=== PATIENT | male | born 1940 | race Caucasian/White ===

== ENCOUNTER 2018-05-06 14:20 | Inpatient (IN) | payer MEDICARE ==
[~2018-05-06] VITALS: Ht 175.3 cm; Wt 93.0 kg
[2018-05-06 14:49] VITALS: BP 140/77
[2018-05-06] MEDS ORDERED: METF-815 PO (15:13)
[2018-05-06] MEDS ORDERED: GABA-529 PO (15:13)
[2018-05-06] MEDS ORDERED: METO-539 PO (15:13)
[2018-05-06] MEDS ORDERED: LOSA1TAB37 PO (15:13)
[2018-05-06] MEDS ORDERED: ASPI-1158 PO (15:13)
[2018-05-06] MEDS ORDERED: ONDANSETRON HCL 4MG/2ML INJ IV PRN (15:30)
[2018-05-06] MEDS ORDERED: CLONIDINE 0.1MG TABLET PO PRN (15:30)
[2018-05-06] MEDS ORDERED: DEXTROSE 50% WATER 50ML SYRINGE IV PRN (15:30)
[2018-05-06] MEDS ORDERED: DOCUSATE SODIUM 100MG CAPSULE PO PRN (15:30)
[2018-05-06] MEDS ORDERED: ACETAMINOPHEN 325MG TABLET PO PRN (15:30)
[2018-05-06 16:00] VITALS: BP 139/77
[2018-05-06] MEDS: GABAPENTIN 100MG CAPSULE PO SCH ×2 (16:10→21:40)
[2018-05-06] MEDS ORDERED: INFLUENZA VIRUS VACCINE(AFLURIA) 0.5ML SYR IM ONE (16:30)
[2018-05-06] MEDS: BLOOD SUGAR DIAGNOSTIC STRIP TEST SCH ×2 (17:04→21:00)
[2018-05-06] MEDS: INSULIN LISPRO 100 UNITS/ML SUBCUT SCH ×2 (17:04→21:00)
[2018-05-06 18:00] VITALS: BP 137/77
[2018-05-06 18:15] LABS: CHLORIDE 99 mEq/L (98-107)
[2018-05-06 18:18] LABS: BASOPHILS % 0.7 % (0.0-2.0); EOSINOPHILS % 1.6 % (0.0-5.0); HEMATOCRIT. 37.3 % (42.0-52.0); HEMOGLOBIN. 12.8 g/dL (14.0-18.0); LYMPHOCYTES % 23.3 % (20.0-50.0); MEAN CORPUSCULAR HEMOGLOBIN 29.9 pg (28.0-32.0); MEAN CORPUSCULAR VOLUME 87.5 fL (80.0-94.0); MEAN PLATELET VOLUME 6.9 fl (7.4-10.4); MONOCYTES % 10.3 % (2.0-8.0); NEUTROPHILS % 64.1 % (40.0-76.0); PARTIAL THROMBOPLASTIN TIME 29.6 sec (23.4-31.0); PLATELET 307 x1000/uL (130-400); RED BLOOD CELL COUNT 4.27 mill/uL (4.7-6.1); RED CELL DISTRIBUTION WIDTH 13.2 % (11.6-14.6)
[2018-05-06 20:00] VITALS: BP 126/76
[2018-05-06] MEDS: METOPROLOL TARTRATE 25MG TABLET PO SCH (21:42)
[2018-05-06] MEDS: DEXT 5%/0.9% NACL 1,000 ML IV SCH (21:45)
[2018-05-06 22:00] VITALS: BP 114/71
[2018-05-07] VITALS (11 sets, daily range): BP systolic 98–130; BP diastolic 56–80
[2018-05-07] MEDS: GABAPENTIN 100MG CAPSULE PO SCH ×2 (06:06→14:51)
[2018-05-07] MEDS: BLOOD SUGAR DIAGNOSTIC STRIP TEST SCH ×2 (06:33→11:50)
[2018-05-07] MEDS: INSULIN LISPRO 100 UNITS/ML SUBCUT SCH ×2 (07:20→12:20)
[2018-05-07] MEDS: DEXT 5%/0.9% NACL 1,000 ML IV SCH (07:58)
[2018-05-07] MEDS: METOPROLOL TARTRATE 25MG TABLET PO SCH (08:01)
[2018-05-07] MEDS ORDERED: HYDROMORPHONE HCL/PF 2MG/ML (OR) ONE (10:34)
[2018-05-07] MEDS ORDERED: PROPOFOL 200MG/20ML VIAL IV ONE (10:50)
[2018-05-07] MEDS ORDERED: LIDOCAINE HCL/EPINEPHRINE 1%-EPI 1:100,000 20 ML VIAL ONE (10:57)
[2018-05-07] MEDS ORDERED: SUCCINYLCHOLINE CHLORIDE 200MG/10ML IV ONE (11:33)
[2018-05-07] MEDS ORDERED: SKIN ADHESIVE 0.7 GM EA TOP ONE (11:46)
[2018-05-20] MEDS ORDERED: MED4 PO (08:45)
[2018-05-20] MEDS ORDERED: TOPXL5 PO (08:45)
[2018-05-20] MEDS ORDERED: METF-815 PO (08:45)
== END 2018-05-07 17:20 | disposition home or self-care (01) | DRG 167 ==
LOC: 3WST 14:20
PROVIDERS: ADMIT Internal Medicine Critical Care Medicine; ATTEND Internal Medicine Critical Care Medicine
PROC: 0BJ08ZZ Inspection of Tracheobronchial Tree, Via Natural or Artificial Opening Endoscopic (ICD-10-PCS; 2018-05-07)
PROC: 07B74ZX Excision of Thorax Lymphatic, Percutaneous Endoscopic Approach, Diagnostic (ICD-10-PCS; principal; 2018-05-07 13:30)
DX: R91.8 Other nonspecific abnormal finding of lung field (principal); R04.2 Hemoptysis; E04.2 Nontoxic multinodular goiter; E11.22 Type 2 diabetes mellitus with diabetic chronic kidney disease; E11.42 Type 2 diabetes mellitus with diabetic polyneuropathy; R59.0 Localized enlarged lymph nodes; I12.9 Hypertensive chronic kidney disease with stage 1 through stage 4 chronic kidney disease, or unspecified chronic kidney disease; I35.0 Nonrheumatic aortic (valve) stenosis; R00.1 Bradycardia, unspecified; E27.8 Other specified disorders of adrenal gland; J38.01 Paralysis of vocal cords and larynx, unilateral; N18.9 Chronic kidney disease, unspecified; Z87.891 Personal history of nicotine dependence; Z98.1 Arthrodesis status; Z90.49 Acquired absence of other specified parts of digestive tract
CPT/HCPCS: 36415; 71045; 82962; 83036; 88305; 88331; 90686; 93005; 93306; 93970; J0330; J1170; J2704; J3490; J7042

== ENCOUNTER 2018-05-20 09:08 | Inpatient (IN) | payer MEDICARE ==
[2018-05-20] VITALS (20 sets, daily range): BP systolic 80–150; BP diastolic 27–126
[~2018-05-20] VITALS: Ht 152.4 cm; Wt 94.0 kg
[~2018-05-20 09:08] MED LIST: ASPI-1158 PO; GABA-529 PO; LOSA1TAB37 PO; MED4 PO; METF-815 PO; METO-539 PO; TOPXL5 PO
[2018-05-20] MEDS ORDERED: BUDE0.252 NEB (09:15)
[2018-05-20] MEDS ORDERED: LACTATED RINGERS 1,000 ML IV SCH (10:40)
[2018-05-20] MEDS ORDERED: DOXYCYCLINE HYCLATE 100 MG/VIAL IV ONE (11:00)
[2018-05-20 11:10] LABS: HEMATOCRIT. 43.4 % (42.0-52.0); HEMOGLOBIN. 14.7 g/dL (14.0-18.0); MEAN CORPUSCULAR HEMOGLOBIN 29.9 pg (28.0-32.0); MEAN CORPUSCULAR VOLUME 88.6 fL (80.0-94.0); MEAN PLATELET VOLUME 6.8 fl (7.4-10.4); PLATELET 320 x1000/uL (130-400); RED CELL DISTRIBUTION WIDTH 14.1 % (11.6-14.6)
[2018-05-20 11:19] LABS: PARTIAL THROMBOPLASTIN TIME 28.6 sec (23.4-31.0); PROTHROMBIN TIME 10.1 sec (9.1-11.1)
[2018-05-20 11:21] LABS: CHLORIDE 101 mEq/L (98-107)
[2018-05-20 11:55] LABS: PLATELET ESTIMATE NORMAL
[2018-05-20] MEDS ORDERED: PROPOFOL 200MG/20ML VIAL IV ONE (13:23)
[2018-05-20] MEDS ORDERED: FENTANYL CITRATE/PF 50MCG/ML 5ML VIAL ONE (13:51)
[2018-05-20] MEDS ORDERED: TETRACAINE/BENZOCAINE/BUTAMBEN 20 GM SPRAY MM ONE (13:59)
[2018-05-20] MEDS ORDERED: SKIN ADHESIVE 0.7 GM EA TOP ONE (15:24)
[2018-05-20] MEDS ORDERED: ONDANSETRON HCL 4MG/2ML INJ IV PRN (16:00)
[2018-05-20] MEDS ORDERED: CLONIDINE 0.1MG TABLET PO PRN (16:00)
[2018-05-20] MEDS ORDERED: DEXTROSE 50% WATER 50ML SYRINGE IV PRN (16:00)
[2018-05-20] MEDS: MORPHINE SULFATE 4 MG/ML CPJ (NOT FOR IM USE) IV PRN ×4 (16:21→21:49)
[2018-05-20 16:24] LABS: HEMATOCRIT. 37.7 % (42.0-52.0); HEMOGLOBIN. 12.6 g/dL (14.0-18.0); MEAN CORPUSCULAR HEMOGLOBIN 29.2 pg (28.0-32.0); MEAN CORPUSCULAR VOLUME 87.5 fL (80.0-94.0); MEAN PLATELET VOLUME 6.6 fl (7.4-10.4); PLATELET 306 x1000/uL (130-400); RED BLOOD CELL COUNT 4.31 mill/uL (4.7-6.1); RED CELL DISTRIBUTION WIDTH 13.9 % (11.6-14.6)
[2018-05-20] MEDS ORDERED: SODIUM CHLORIDE 0.9% 500 ML IV NR (16:30)
[2018-05-20] MEDS: IPRATROPIUM/ALBUTEROL 0.5-3(2.5)MG/3ML NEB INH PRN (16:42)
[2018-05-20 16:46] LABS: BG BASE EXCESS -2.7 mmol/L (-2.0-2.0); BG CARBOXYHEMOGLOBIN 0.5 % (0.5-1.5); BG DEOXYHEMOGLOBIN 4.7 % (0.0-5.0); BG FRACTION INSPIRED OXYGEN 70; BG HCO3 ACT 21.6 mmol/L (22.0-26.0); BG METHEMOGLOBIN 0.5 % (0.0-1.5); BG OXYGEN SATURATION 95.3 % (92.0-98.5); BG OXYHEMOGLOBIN 94.3 % (94.0-97.0); BG PCO2 36.3 mmHg (35.0-45.0); BG PH 7.393 (7.350-7.450); BG PO2 80.7 mmHg (75.0-100.0); BG SAMPLE SITE RIGHT BRACHIAL; BG TOTAL HEMOGLOBIN 13.4 g/dL (12.0-18.0); BG VENT MODE MASK - SIMPLE
[2018-05-20 16:47] LABS: PLATELET ESTIMATE NORMAL
[2018-05-20] MEDS: BLOOD SUGAR DIAGNOSTIC STRIP TEST SCH ×2 (17:24→20:32)
[2018-05-20] MEDS ORDERED: SODIUM CHLORIDE 0.9% 500 ML IV SCH (17:30)
[2018-05-20] MEDS: INSULIN LISPRO 100 UNITS/ML SUBCUT SCH ×2 (17:45→21:27)
[2018-05-20] MEDS: HYDROCODONE/ACETAMINOPHEN 5/325MG TABLET PO PRN (20:16)
[2018-05-20 20:38] LABS: HEMATOCRIT 42.8 % (42.0-52.0); HEMOGLOBIN 14.2 g/dL (14.0-18.0); MEAN CORPUSCULAR HEMOGLOBIN 29.6 pg (28.0-32.0); MEAN CORPUSCULAR VOLUME 89.7 fL (80.0-94.0); PLATELET 287 x1000/uL (130-400); RED BLOOD CELL COUNT 4.78 mill/uL (4.7-6.1); RED CELL DISTRIBUTION WIDTH 13.8 % (11.6-14.6)
[2018-05-20] MEDS: GABAPENTIN 300MG CAPSULE PO SCH (21:26)
[2018-05-21] VITALS (39 sets, daily range): BP systolic 98–166; BP diastolic 60–88
[2018-05-21] MEDS: HYDROCODONE/ACETAMINOPHEN 5/325MG TABLET PO PRN (05:28)
[2018-05-21 06:19] LABS: HEMATOCRIT. 38.3 % (42.0-52.0); HEMOGLOBIN. 12.9 g/dL (14.0-18.0); MEAN CORPUSCULAR HEMOGLOBIN 29.6 pg (28.0-32.0); MEAN CORPUSCULAR VOLUME 87.9 fL (80.0-94.0); MEAN PLATELET VOLUME 7.1 fl (7.4-10.4); PLATELET 325 x1000/uL (130-400); RED BLOOD CELL COUNT 4.35 mill/uL (4.7-6.1); RED CELL DISTRIBUTION WIDTH 13.8 % (11.6-14.6)
[2018-05-21 06:34] LABS: CHLORIDE 103 mEq/L (98-107)
[2018-05-21] MEDS: GABAPENTIN 300MG CAPSULE PO SCH ×3 (06:55→21:23)
[2018-05-21] MEDS: MORPHINE SULFATE 4 MG/ML CPJ (NOT FOR IM USE) IV PRN ×2 (07:50→18:44)
[2018-05-21 07:55] LABS: PLATELET ESTIMATE NORMAL
[2018-05-21] MEDS: BLOOD SUGAR DIAGNOSTIC STRIP TEST SCH ×4 (08:07→21:24)
[2018-05-21] MEDS: INSULIN LISPRO 100 UNITS/ML SUBCUT SCH ×4 (08:14→21:00)
[2018-05-21] MEDS: SODIUM CHLORIDE 0.9% 1,000 ML IV SCH ×2 (09:35→21:24)
[2018-05-21] MEDS: HYDROCODONE/ACETAMINOPHEN 10/325MG TABLET PO PRN ×3 (09:36→23:00)
[2018-05-21] MEDS: IPRATROPIUM/ALBUTEROL 0.5-3(2.5)MG/3ML NEB INH PRN (22:37)
[2018-05-21] MEDS: GUAIFENESIN 600MG ER TABLET PO SCH (22:49)
[2018-05-22] VITALS (47 sets, daily range): BP systolic 97–147; BP diastolic 55–105
[2018-05-22] MEDS: MORPHINE SULFATE 4 MG/ML CPJ (NOT FOR IM USE) IV PRN ×2 (02:03→06:33)
[2018-05-22] MEDS: ACETAMINOPHEN 325MG TABLET PO PRN (03:48)
[2018-05-22] MEDS: SODIUM CHLORIDE 0.9% 1,000 ML IV SCH ×2 (04:25→16:59)
[2018-05-22] MEDS: HYDROCODONE/ACETAMINOPHEN 5/325MG TABLET PO PRN (04:59)
[2018-05-22 05:47] LABS: HEMATOCRIT. 34.4 % (42.0-52.0); HEMOGLOBIN. 11.5 g/dL (14.0-18.0); MEAN CORPUSCULAR HEMOGLOBIN 29.5 pg (28.0-32.0); MEAN CORPUSCULAR VOLUME 88.1 fL (80.0-94.0); MEAN PLATELET VOLUME 7.1 fl (7.4-10.4); PLATELET 271 x1000/uL (130-400); RED CELL DISTRIBUTION WIDTH 14.1 % (11.6-14.6)
[2018-05-22] MEDS: GABAPENTIN 300MG CAPSULE PO SCH ×3 (06:00→21:04)
[2018-05-22 06:40] LABS: INR 1.1; PARTIAL THROMBOPLASTIN TIME 30.9 sec (23.4-31.0)
[2018-05-22 07:15] LABS: CHLORIDE 104 mEq/L (98-107)
[2018-05-22 07:59] LABS: PLATELET ESTIMATE NORMAL
[2018-05-22] MEDS: BLOOD SUGAR DIAGNOSTIC STRIP TEST SCH ×4 (08:02→21:04)
[2018-05-22] MEDS: INSULIN LISPRO 100 UNITS/ML SUBCUT SCH ×4 (08:02→21:00)
[2018-05-22] MEDS: HYDROCODONE/ACETAMINOPHEN 10/325MG TABLET PO PRN ×2 (09:17→19:02)
[2018-05-22] MEDS: GUAIFENESIN 600MG ER TABLET PO SCH ×2 (09:17→21:04)
[2018-05-22] MEDS: IPRATROPIUM/ALBUTEROL 0.5-3(2.5)MG/3ML NEB INH PRN ×2 (09:31→14:41)
[2018-05-22 10:02] LABS: BG BASE EXCESS -1.5 mmol/L (-2.0-2.0); BG CARBOXYHEMOGLOBIN 0.6 % (0.5-1.5); BG DEOXYHEMOGLOBIN 7.4 % (0.0-5.0); BG FRACTION INSPIRED OXYGEN 50; BG HCO3 ACT 22.3 mmol/L (22.0-26.0); BG METHEMOGLOBIN 0.5 % (0.0-1.5); BG OXYGEN SATURATION 92.5 % (92.0-98.5); BG OXYHEMOGLOBIN 91.5 % (94.0-97.0); BG PCO2 34.3 mmHg (35.0-45.0); BG PO2 62.7 mmHg (75.0-100.0); BG SAMPLE SITE RIGHT RADIAL; BG VENT MODE MASK - SIMPLE
[2018-05-23] VITALS (35 sets, daily range): BP systolic 96–138; BP diastolic 42–98
[2018-05-23] MEDS: SODIUM CHLORIDE 0.9% 1,000 ML IV SCH ×3 (01:39→17:55)
[2018-05-23] MEDS: GABAPENTIN 300MG CAPSULE PO SCH ×3 (04:33→22:12)
[2018-05-23] MEDS: HYDROCODONE/ACETAMINOPHEN 10/325MG TABLET PO PRN (04:34)
[2018-05-23 06:14] LABS: HEMATOCRIT. 32.1 % (42.0-52.0); HEMOGLOBIN. 10.7 g/dL (14.0-18.0); MEAN CORPUSCULAR HEMOGLOBIN 29.5 pg (28.0-32.0); MEAN CORPUSCULAR VOLUME 88.4 fL (80.0-94.0); MEAN PLATELET VOLUME 7.2 fl (7.4-10.4); PLATELET 249 x1000/uL (130-400); RED BLOOD CELL COUNT 3.63 mill/uL (4.7-6.1)
[2018-05-23 06:25] LABS: CHLORIDE 105 mEq/L (98-107)
[2018-05-23 07:47] LABS: PLATELET ESTIMATE NORMAL
[2018-05-23 07:48] LABS: BG BASE EXCESS -2.4 mmol/L (-2.0-2.0); BG CARBOXYHEMOGLOBIN 0.1 % (0.5-1.5); BG DEOXYHEMOGLOBIN 2.7 % (0.0-5.0); BG HCO3 ACT 21.5 mmol/L (22.0-26.0); BG METHEMOGLOBIN 0.3 % (0.0-1.5); BG OXYGEN SATURATION 97.3 % (92.0-98.5); BG OXYHEMOGLOBIN 96.9 % (94.0-97.0); BG PCO2 34.1 mmHg (35.0-45.0); BG PH 7.418 (7.350-7.450); BG PO2 92.9 mmHg (75.0-100.0); BG SAMPLE SITE RIGHT BRACHIAL; BG TOTAL HEMOGLOBIN 10.7 g/dL (12.0-18.0); BG VENT MODE VAPOTHERM
[2018-05-23] MEDS: BLOOD SUGAR DIAGNOSTIC STRIP TEST SCH ×4 (07:50→21:00)
[2018-05-23] MEDS: INSULIN LISPRO 100 UNITS/ML SUBCUT SCH ×4 (08:20→21:00)
[2018-05-23] MEDS: IPRATROPIUM/ALBUTEROL 0.5-3(2.5)MG/3ML NEB INH PRN ×2 (08:33→11:45)
[2018-05-23] MEDS: GUAIFENESIN 600MG ER TABLET PO SCH (08:49)
[2018-05-23] MEDS: MORPHINE SULFATE 4 MG/ML CPJ (NOT FOR IM USE) IV PRN (08:51)
[2018-05-23] MEDS: ACETYLCYSTEINE 100MG/ML 10% VIAL 4ML INH SCH (11:45)
[2018-05-23] MEDS ORDERED: BISACODYL 5MG TABLET PO PRN (15:00)
[2018-05-23] MEDS: DOCUSATE SODIUM 250MG CAPSULE PO SCH (15:00)
[2018-05-23] MEDS: TRAMADOL 50MG TABLET PO PRN (18:15)
[2018-05-23] MEDS: HYDROCODONE/ACETAMINOPHEN 5/325MG TABLET PO PRN (22:12)
[2018-05-24] VITALS (16 sets, daily range): BP systolic 98–137; BP diastolic 62–91
[2018-05-24] MEDS: ACETYLCYSTEINE 100MG/ML 10% VIAL 4ML INH SCH ×3 (00:28→16:30)
[2018-05-24] MEDS: IPRATROPIUM/ALBUTEROL 0.5-3(2.5)MG/3ML NEB INH PRN ×6 (00:28→21:30)
[2018-05-24] MEDS: SODIUM CHLORIDE 0.9% 1,000 ML IV SCH ×3 (04:24→22:39)
[2018-05-24] MEDS: INSULIN LISPRO 100 UNITS/ML SUBCUT SCH ×4 (07:20→21:00)
[2018-05-24] MEDS: BLOOD SUGAR DIAGNOSTIC STRIP TEST SCH ×4 (07:21→21:00)
[2018-05-24] MEDS: GABAPENTIN 300MG CAPSULE PO SCH ×3 (07:21→22:49)
[2018-05-24] MEDS: DOCUSATE SODIUM 250MG CAPSULE PO SCH (09:00)
[2018-05-24 10:40] LABS: BG BASE EXCESS -4.4 mmol/L (-2.0-2.0); BG CARBOXYHEMOGLOBIN 0.3 % (0.5-1.5); BG DEOXYHEMOGLOBIN 2.8 % (0.0-5.0); BG FRACTION INSPIRED OXYGEN 60; BG HCO3 ACT 18.9 mmol/L (22.0-26.0); BG METHEMOGLOBIN 0.7 % (0.0-1.5); BG OXYGEN SATURATION 97.2 % (92.0-98.5); BG OXYHEMOGLOBIN 96.2 % (94.0-97.0); BG PCO2 28.6 mmHg (35.0-45.0); BG PH 7.437 (7.350-7.450); BG PO2 96.9 mmHg (75.0-100.0); BG SAMPLE SITE RIGHT FEMORAL; BG TOTAL HEMOGLOBIN 10.3 g/dL (12.0-18.0); BG VENT MODE VAPOTHERM
[2018-05-25] VITALS (12 sets, daily range): BP systolic 99–141; BP diastolic 54–89
[2018-05-25] MEDS: IPRATROPIUM/ALBUTEROL 0.5-3(2.5)MG/3ML NEB INH PRN ×3 (01:20→16:32)
[2018-05-25] MEDS: ACETYLCYSTEINE 100MG/ML 10% VIAL 4ML INH SCH ×3 (01:21→16:31)
[2018-05-25] MEDS: HYDROCODONE/ACETAMINOPHEN 5/325MG TABLET PO PRN (02:01)
[2018-05-25] MEDS: GABAPENTIN 300MG CAPSULE PO SCH ×3 (06:00→21:21)
[2018-05-25 06:34] LABS: BASOPHILS % 0.3 % (0.0-2.0); EOSINOPHILS % 0.6 % (0.0-5.0); HEMATOCRIT. 26.4 % (42.0-52.0); HEMOGLOBIN. 9.3 g/dL (14.0-18.0); LYMPHOCYTES % 7.2 % (20.0-50.0); MEAN CORPUSCULAR HEMOGLOBIN 30.7 pg (28.0-32.0); MEAN CORPUSCULAR VOLUME 86.9 fL (80.0-94.0); MEAN PLATELET VOLUME 6.7 fl (7.4-10.4); NEUTROPHILS % 80.9 % (40.0-76.0); PLATELET 297 x1000/uL (130-400); RED BLOOD CELL COUNT 3.03 mill/uL (4.7-6.1)
[2018-05-25 07:11] LABS: CHLORIDE 104 mEq/L (98-107)
[2018-05-25] MEDS: INSULIN LISPRO 100 UNITS/ML SUBCUT SCH ×4 (07:11→22:00)
[2018-05-25] MEDS: BLOOD SUGAR DIAGNOSTIC STRIP TEST SCH ×4 (07:11→21:12)
[2018-05-25] MEDS: TRAMADOL 50MG TABLET PO PRN ×2 (08:21→21:22)
[2018-05-25] MEDS: DOCUSATE SODIUM 250MG CAPSULE PO SCH (09:00)
[2018-05-25 09:53] LABS: BG BASE EXCESS -3.4 mmol/L (-2.0-2.0); BG CARBOXYHEMOGLOBIN 0.3 % (0.5-1.5); BG DEOXYHEMOGLOBIN 1.5 % (0.0-5.0); BG FRACTION INSPIRED OXYGEN 60; BG HCO3 ACT 19.9 mmol/L (22.0-26.0); BG METHEMOGLOBIN 0.5 % (0.0-1.5); BG OXYGEN SATURATION 98.5 % (92.0-98.5); BG OXYHEMOGLOBIN 97.7 % (94.0-97.0); BG PH 7.439 (7.350-7.450); BG PO2 121.5 mmHg (75.0-100.0); BG SAMPLE SITE RIGHT RADIAL; BG TOTAL HEMOGLOBIN 11.3 g/dL (12.0-18.0); BG VENT MODE VAPOTHERM
[2018-05-25] MEDS: SODIUM CHLORIDE 0.9% 1,000 ML IV SCH ×2 (10:20→21:23)
[2018-05-26] VITALS (12 sets, daily range): BP systolic 89–133; BP diastolic 59–79
[2018-05-26] MEDS ORDERED: KCL 10MEQ/50ML PREMIX 50 ML IV NR
[2018-05-26] MEDS: IPRATROPIUM/ALBUTEROL 0.5-3(2.5)MG/3ML NEB INH PRN ×3 (00:50→15:33)
[2018-05-26] MEDS: ACETYLCYSTEINE 100MG/ML 10% VIAL 4ML INH SCH ×3 (00:50→15:33)
[2018-05-26 06:26] LABS: HEMATOCRIT. 27.2 % (42.0-52.0); HEMOGLOBIN. 9.3 g/dL (14.0-18.0); MEAN CORPUSCULAR HEMOGLOBIN 29.6 pg (28.0-32.0); MEAN PLATELET VOLUME 6.6 fl (7.4-10.4); PLATELET 289 x1000/uL (130-400); RED BLOOD CELL COUNT 3.13 mill/uL (4.7-6.1); RED CELL DISTRIBUTION WIDTH 14.2 % (11.6-14.6)
[2018-05-26] MEDS: BLOOD SUGAR DIAGNOSTIC STRIP TEST SCH ×4 (06:33→21:00)
[2018-05-26] MEDS: INSULIN LISPRO 100 UNITS/ML SUBCUT SCH ×4 (06:33→21:00)
[2018-05-26] MEDS: GABAPENTIN 300MG CAPSULE PO SCH ×3 (06:33→22:05)
[2018-05-26 06:35] LABS: CHLORIDE 104 mEq/L (98-107)
[2018-05-26] MEDS: TRAMADOL 50MG TABLET PO PRN ×2 (08:36→17:26)
[2018-05-26] MEDS: SODIUM CHLORIDE 0.9% 1,000 ML IV SCH ×2 (08:36→19:45)
[2018-05-26] MEDS: DOCUSATE SODIUM 250MG CAPSULE PO SCH (08:36)
[2018-05-26 10:36] LABS: BG BASE EXCESS -1.5 mmol/L (-2.0-2.0); BG CARBOXYHEMOGLOBIN 0.3 % (0.5-1.5); BG DEOXYHEMOGLOBIN 2.5 % (0.0-5.0); BG FRACTION INSPIRED OXYGEN 50; BG HCO3 ACT 22.2 mmol/L (22.0-26.0); BG METHEMOGLOBIN 0.4 % (0.0-1.5); BG OXYGEN SATURATION 97.5 % (92.0-98.5); BG OXYHEMOGLOBIN 96.8 % (94.0-97.0); BG PCO2 33.3 mmHg (35.0-45.0); BG PH 7.441 (7.350-7.450); BG PO2 93.5 mmHg (75.0-100.0); BG SAMPLE SITE RIGHT RADIAL; BG TOTAL HEMOGLOBIN 10.5 g/dL (12.0-18.0); BG VENT MODE VAPOTHERM
[2018-05-26 13:32] LABS: PLATELET ESTIMATE NORMAL
[2018-05-26 19:06] LABS: CLARITY URINE CLOUDY (CLEAR); COLOR URINE DARK YELLOW (YELLOW); KETONES URINE 3+ (NEGATIVE); LEUKOCYTE ESTERASE URINE 3+ (NEGATIVE); NITRITE URINE POSITIVE (NEGATIVE); OCCULT BLOOD URINE 1+ (NEGATIVE); PH URINE 5.5 (4.5-8.0); PROTEIN URINE TRACE (NEGATIVE); SPECIFIC GRAVITY URINE 1.017 (1.005-1.030)
[2018-05-27] VITALS (12 sets, daily range): BP systolic 92–144; BP diastolic 53–94
[2018-05-27] MEDS: IPRATROPIUM/ALBUTEROL 0.5-3(2.5)MG/3ML NEB INH PRN ×4 (00:11→17:15)
[2018-05-27] MEDS: ACETYLCYSTEINE 100MG/ML 10% VIAL 4ML INH SCH ×4 (00:11→17:14)
[2018-05-27] MEDS: SODIUM CHLORIDE 0.9% 1,000 ML IV SCH ×2 (05:27→18:05)
[2018-05-27] MEDS: GABAPENTIN 300MG CAPSULE PO SCH ×3 (05:27→22:10)
[2018-05-27] MEDS: INSULIN LISPRO 100 UNITS/ML SUBCUT SCH ×4 (07:20→21:00)
[2018-05-27] MEDS: BLOOD SUGAR DIAGNOSTIC STRIP TEST SCH ×4 (07:29→21:00)
[2018-05-27] MEDS: DOCUSATE SODIUM 250MG CAPSULE PO SCH (08:10)
[2018-05-27 08:34] LABS: BG BASE EXCESS 0.2 mmol/L (-2.0-2.0); BG CARBOXYHEMOGLOBIN 0.1 % (0.5-1.5); BG DEOXYHEMOGLOBIN 6.6 % (0.0-5.0); BG FRACTION INSPIRED OXYGEN 35; BG HCO3 ACT 22.9 mmol/L (22.0-26.0); BG METHEMOGLOBIN 0.1 % (0.0-1.5); BG OXYGEN SATURATION 93.4 % (92.0-98.5); BG OXYHEMOGLOBIN 93.2 % (94.0-97.0); BG PCO2 30.3 mmHg (35.0-45.0); BG PH 7.496 (7.350-7.450); BG PO2 62.6 mmHg (75.0-100.0); BG SAMPLE SITE RIGHT RADIAL; BG TOTAL HEMOGLOBIN 10.2 g/dL (12.0-18.0); BG VENT MODE VAPOTHERM
[2018-05-27 10:32] LABS: HEMATOCRIT. 32.3 % (42.0-52.0); HEMOGLOBIN. 10.6 g/dL (14.0-18.0); MEAN CORPUSCULAR HEMOGLOBIN 28.9 pg (28.0-32.0); MEAN CORPUSCULAR VOLUME 87.5 fL (80.0-94.0); MEAN PLATELET VOLUME 6.8 fl (7.4-10.4); PLATELET 338 x1000/uL (130-400); RED BLOOD CELL COUNT 3.69 mill/uL (4.7-6.1); RED CELL DISTRIBUTION WIDTH 14.1 % (11.6-14.6)
[2018-05-27 10:43] LABS: CHLORIDE 98 mEq/L (98-107)
[2018-05-27 10:56] LABS: PLATELET ESTIMATE NORMAL
[2018-05-27] MEDS: TRAMADOL 50MG TABLET PO PRN ×2 (11:08→18:40)
[2018-05-27] MEDS: LEVOFLOXACIN 250MG TABLET PO SCH (11:09)
[2018-05-27] MEDS ORDERED: POTASSIUM CHLORIDE 20MEQ TABLET SR PO NR (12:00)
[2018-05-27] MEDS: ACETAMINOPHEN 325MG TABLET PO PRN (15:21)
[2018-05-28] VITALS (15 sets, daily range): BP systolic 94–144; BP diastolic 52–87
[2018-05-28] MEDS: SODIUM CHLORIDE 0.9% 1,000 ML IV SCH ×2 (00:07→10:45)
[2018-05-28] MEDS: TRAMADOL 50MG TABLET PO PRN ×2 (02:51→09:53)
[2018-05-28] MEDS: GABAPENTIN 300MG CAPSULE PO SCH ×3 (05:49→22:04)
[2018-05-28] MEDS: BLOOD SUGAR DIAGNOSTIC STRIP TEST SCH ×4 (05:55→20:48)
[2018-05-28] MEDS: INSULIN LISPRO 100 UNITS/ML SUBCUT SCH ×4 (06:05→20:53)
[2018-05-28 07:22] LABS: HEMATOCRIT. 28.5 % (42.0-52.0); HEMOGLOBIN. 9.9 g/dL (14.0-18.0); MEAN CORPUSCULAR HEMOGLOBIN 29.8 pg (28.0-32.0); MEAN PLATELET VOLUME 6.6 fl (7.4-10.4); PLATELET 306 x1000/uL (130-400); RED BLOOD CELL COUNT 3.31 mill/uL (4.7-6.1); RED CELL DISTRIBUTION WIDTH 14.5 % (11.6-14.6)
[2018-05-28] MEDS: DOCUSATE SODIUM 250MG CAPSULE PO SCH (08:04)
[2018-05-28 09:27] LABS: CHLORIDE 99 mEq/L (98-107)
[2018-05-28] MEDS: ACETYLCYSTEINE 100MG/ML 10% VIAL 4ML INH SCH (09:43)
[2018-05-28] MEDS: IPRATROPIUM/ALBUTEROL 0.5-3(2.5)MG/3ML NEB INH PRN ×2 (09:44→13:49)
[2018-05-28] MEDS: LEVOFLOXACIN 250MG TABLET PO SCH (11:07)
[2018-05-28 12:02] LABS: NUCLEATED RED BLOOD CELLS 1 /100 WBC; PLATELET ESTIMATE NORMAL
[2018-05-28] MEDS ORDERED: POTASSIUM CHLORIDE 20MEQ TABLET SR PO NR (13:45)
[2018-05-28] MEDS: LIDOCAINE 5% PATCH TOP SCH (15:07)
[2018-05-29] VITALS (14 sets, daily range): BP systolic 96–133; BP diastolic 54–71
[2018-05-29] MEDS: GABAPENTIN 300MG CAPSULE PO SCH ×3 (06:21→21:49)
[2018-05-29] MEDS: BLOOD SUGAR DIAGNOSTIC STRIP TEST SCH ×4 (06:21→21:56)
[2018-05-29] MEDS: INSULIN LISPRO 100 UNITS/ML SUBCUT SCH ×4 (07:20→21:00)
[2018-05-29] MEDS: DOCUSATE SODIUM 250MG CAPSULE PO SCH (08:07)
[2018-05-29] MEDS: LIDOCAINE 5% PATCH TOP SCH (08:12)
[2018-05-29] MEDS: LEVOFLOXACIN 250MG TABLET PO SCH (12:02)
[2018-05-29] MEDS: IPRATROPIUM/ALBUTEROL 0.5-3(2.5)MG/3ML NEB INH PRN (21:10)
== END 2018-05-29 22:30 | DRG 853 ==
LOC: OR 09:08 → CVICU 09:09 → EDSTATUS 12:00 → 3WST 05-23 16:01
PROVIDERS: ADMIT Internal Medicine Critical Care Medicine; ATTEND Internal Medicine Critical Care Medicine
PROC: 0BJ08ZZ Inspection of Tracheobronchial Tree, Via Natural or Artificial Opening Endoscopic (ICD-10-PCS; 2018-05-20)
PROC: 0W9B00Z Drainage of Left Pleural Cavity with Drainage Device, Open Approach (ICD-10-PCS; 2018-05-20)
PROC: 0BNG0ZZ Release Left Upper Lung Lobe, Open Approach (ICD-10-PCS; 2018-05-20)
PROC: 0BBG0ZX Excision of Left Upper Lung Lobe, Open Approach, Diagnostic (ICD-10-PCS; principal; 2018-05-20 12:00)
DX: A41.51 Sepsis due to Escherichia coli [E. coli] (principal); J96.20 Acute and chronic respiratory failure, unspecified whether with hypoxia or hypercapnia; C34.90 Malignant neoplasm of unspecified part of unspecified bronchus or lung; N39.0 Urinary tract infection, site not specified; E11.22 Type 2 diabetes mellitus with diabetic chronic kidney disease; E04.2 Nontoxic multinodular goiter; I12.9 Hypertensive chronic kidney disease with stage 1 through stage 4 chronic kidney disease, or unspecified chronic kidney disease; J38.01 Paralysis of vocal cords and larynx, unilateral; E87.6 Hypokalemia; G89.18 Other acute postprocedural pain; E11.40 Type 2 diabetes mellitus with diabetic neuropathy, unspecified; D64.9 Anemia, unspecified; J43.9 Emphysema, unspecified; N18.9 Chronic kidney disease, unspecified; N28.1 Cyst of kidney, acquired; Z98.1 Arthrodesis status; Z90.49 Acquired absence of other specified parts of digestive tract; Z87.891 Personal history of nicotine dependence; E27.8 Other specified disorders of adrenal gland
CPT/HCPCS: 36415; 36600; 70551; 71045; 71250; 73706; 80048; 82375; 82805; 82962; 83735; 85027; 86850; 86900; 87077; 87186; 88305; 88331; 92610; 94640; 97110; 97116; 97162; 97167; 97530; 97535; J1815; J2270; J2405; J2704; J3010; J3480; J3490; J7030; J7040; J7050; J7120; J7608; J7620; L3908